=== PATIENT | male | born 1965 | race Caucasian/White ===

== ENCOUNTER → 2016-04-29 | Outpatient (CLI) | payer OTHER | LOC: CT 04-24 09:30 | DX: C18.7 Malignant neoplasm of sigmoid colon (principal); R16.1 Splenomegaly, not elsewhere classified | CPT/HCPCS: 36415; 71260; 82565; 84520; J7050; Q9965 ==

== ENCOUNTER → 2016-06-27 | Outpatient (CLI) | payer OTHER | LOC: ECHO 10:29 | DX: I25.10 Atherosclerotic heart disease of native coronary artery without angina pectoris (principal); I38 Endocarditis, valve unspecified; I51.7 Cardiomegaly; I35.0 Nonrheumatic aortic (valve) stenosis | CPT/HCPCS: ECHO; 93306 ==